=== PATIENT | female | born 1965 | race Caucasian/White ===

== ENCOUNTER 2020-11-01 12:17 | Observation (INO) | payer OTHER ==
[~2020-11-01] VITALS: Ht 172.7 cm; Wt 94.1 kg
--- NOTE | ~2020-11-01 | EMS ---
[place] [id number] EMS Patient Care Report Name: DANIELLE MENDOZA Room: [address]#: [id number] Admission: 11/01/20 Attend Phys: Naga Garcia MD Discharge: Date of : 67 Report #: [id number] THIS REPORT FOR: //name// Report Transmitted: 11/01/2020 14:49 EMS Care Summary [facility] Incident [phone] @ 11/01/2020 11:38 Incident Location [address] [place] [address] Patient DANIELLE MENDOZA Female, 54 Years 1965 Patient Address [address] [place] [address] Patient History Hyperlipidemia,Chronic Pain, Patient Allergies No known allergies, Patient Medications Simvastatin, Hydrocodone, Chief Complaint Radiating Chest Pain Disposition Transported No Lights/[place] Dispatch Reason Chest Pain (Non-Traumatic) Transported To [facility] Narrative Med 1 and Engine 2 as dispatched for a [age] year-old female c/o chest pain. Upon arrival, the patient was lying supine in her bed accompanied by family. The patient did not speak [place] well but a friend was there to help translate. The patient reported that she [place] [address] EMS Patient Care Report Name: DANIELLE MENDOZA Room: [address]#: [id number] Admission: 11/01/20 Attend Phys: Naga Garcia MD Discharge: Date of : 67 Report #: [id number] radiated down her left arm rated at a 10/10. Patient's vitals were obtained and patient was placed on the matchbook maker. 12 lead shown NSR with no ectopy. The patient was assisted to the stretcher and secured via the seatbelts and moved to the ambulance without incident. In the ambulance, patient was placed on Oxygen via NC at 2 lpm, IV access was established in the patient's right AC with a 20 GA IV catheter. Patient's blood glucose was 101 mg/dL. Patient was given 324 mg of ASA and 100 mcg of Fentanyl. Patient's pain decreased to a 3. Patient was monitored throughout transport. Hospital report was given via radio with no questions or orders received or requested. Med 1 arrived at the hospital. Patient was moved into the ER room 15 without incident. Patient care was transferred to ER staff and MEd 1 returned back into service. Initial Vitals @11:47P: 82,R: 18,Pain: 10/10,GCS: 15,SpO2: 98, @11:55P: 91,R: 20,BP: 170/104,GCS: 15,SpO2: 99,Revised Trauma: 12, @11:43P: 84,R: 18,BP: 154/94,Pain: 10/10,GCS: 15,Temp: 97.9F,Glucose: 101,SpO2: 98,Revised Trauma: 12, @12:07P: 94,R: 18,BP: 172/98,Pain: 10/10,GCS: 15,SpO2: 99,Revised Trauma: 12, Assessments @11:45MENTAL:Person Oriented,Time Oriented,Place Oriented,Event Oriented,SKIN:HEENT:Head/Face: No Abnormalities,LUNG SOUNDS:ABDOMEN:PELVIS//GI:EXTREMITIES:Left Arm: Other,Right Arm: No Abnormalities,Left Leg: No Abnormalities,Right Leg: No Abnormalities,PULSE:NEURO:No Abnormalities, Impression Chest Pain / Discomfort Procedures @12:05Fentanyl - 100 Micrograms (mcg) - Intravenous (IV)Response: Improved@11:52Saline Lock 10cc (20 ga) Site: Antecubital-RightResponse: UnchangedSucceeded@12:02Aspirin - 324 Milligrams (mg) - OralResponse: Unchanged Timeline 11:38,Call Received 11:38,Dispatched 11:38,En Route 11:41,On Scene 11:42,At Patient 11:43,BP: 154/94 M,PULSE: 84,RR: 18 R,SPO2: 98 Ox,ETCO2: ,B,PAIN: 10,GCS: 15, [place] [address] EMS Patient Care Report Name: DANIELLE MENDOZA Room: [address] M.R.#: [id number] Admission: 11/01/20 Attend Phys: Naga Garcia MD Discharge: Date of : 67 Report #: [id number] 11:47,BP: / M,PULSE: 82,RR: 18 R,SPO2: 98 Ox,ETCO2: ,BG: ,PAIN: 10,GCS: 15, 11:52,Saline Lock 10cc 20 ga Site: Antecubital-Right,Response: UnchangedSucceeded, 11:55,BP: 170/104 M,PULSE: 91,RR: 20 R,SPO2: 99 Ox,ETCO2: ,BG: ,PAIN: ,GCS: 15, 11:56,Depart Scene 12:02,Aspirin - 324 Milligrams (mg) - Oral,Response: Unchanged 12:05,Fentanyl - 100 Micrograms (mcg) - Intravenous (IV),Response: Improved 12:07,BP: 172/98 M,PULSE: 94,RR: 18 R,SPO2: 99 Ox,ETCO2: ,BG: ,PAIN: 10,GCS: 15, 12:14,At Destination 12:45,Call Closed 12:45,In District Disclaimer v1.1 Copyright 2020 [employer] This EMS Care Summary contains data elements from the applicable legal record (which may be displayed differently). It is designed to provide pertinent information for the following purposes: continuity of care, clinical quality, and state data reporting. The complete legal record is available to ED staff and administrators of the receiving hospital in ES's Patient Tracker. All data is provided "as is."
--- NOTE | ~2020-11-01 | H ---
[address] [address] HISTORY AND PHYSICAL Name: DANIELLE MENDOZA Room: [address] Suzy Lacey#: [id number] Admission: 11/01/20 Attend Phys: Naga Garcia MD Discharge: 11/01/20 Date of : 67 Report #: [id number] THIS REPORT FOR: cc: Cory Espino Ahmad W. DO [facility],Medical Records Staff ~ For History and Physical please refer to the consultation note in the patient's medical record. By: 1452Medical Records Staff TEJINDER /NAT
[2020-11-01 12:21] VITALS: BP 153/83
--- NOTE | 2020-11-01 12:31 | NUR ---
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
[2020-11-01 12:41] LABS: ABSOLUTE BASOPHILS 0.1 thou/uL (0.0-0.2); ABSOLUTE EOSINOPHILS 0.1 thou/uL (0.0-0.7); ABSOLUTE LYMPHOCYTES 3.8 thou/uL (0.8-5.3); ABSOLUTE MONOCYTES 0.8 thou/uL (0.0-1.2); ABSOLUTE NEUTROPHILS 4.8 thou/uL (1.6-8.1); BASOPHILS 0.6 %; HEMATOCRIT 41.1 % (37.0-47.0); HEMOGLOBIN 13.6 gm/dL (12.0-15.0); MCH 30.4 pg (26.0-34.0); MCHC 33.2 g/dL (28.0-37.0); MCV 91.4 fL (80.0-100.0); MONOCYTES 8.2 %; MPV 7.8 fl. (7.2-11.1); NUCLEATED RBCS 0 /100WBC; PLATELET COUNT* 303 thou/uL (150-400); POLYS 50.2 %; RDW-CV 13.3 % (10.5-14.5); WBC 9.5 thou/uL (4.0-11.0)
[2020-11-01 12:51] LABS: CALCIUM 9.6 mg/dL (8.5-10.1); CREATININE 0.8 mg/dL (0.6-1.3)
[2020-11-01 13:02] LABS: ALBUMIN 4.3 g/dL (3.4-5.0); TOTAL BILIRUBIN 0.4 mg/dL (<0.1-1.0); TOTAL PROTEIN 8.4 g/dL (6.4-8.2)
--- NOTE | 2020-11-01 14:39 | NUR ---
PT TANNER KOWALSKI, REQUEST TO BE UPDATED AT [phone]
[2020-11-01] MEDS ORDERED: NITROSTAT0.4 M1 SUBLING (15:44)
[2020-11-01] MEDS ORDERED: ASA81BEC PO (15:44)
--- NOTE | 2020-11-01 17:22 | EXE ---
[place] [address] STRESS ECHOCARDIOGRAM Name: REJIDANIELLE Room: [address] M.R.#: [id number] Admission: 11/01/20 Attend Phys: Naga Garcia, Discharge: Date of : 67 Date of Service: 11/01/20 1721 Report #: [id number] THIS REPORT FOR: cc: Cory Espino Ahmad W. DO Holkins,Greg Fuentes MD [facility] ~ APPROVED REPORT Study performed: 11/01/2020 16:31:32 Exam: Dobutamine Stress Echo Indication: Chest pain , Dyspnea Patient Location: ER Stress Nurse: Tatiana Lane RN Supervising Physician: Sabino Cullen MD Status: routine Ht: 5 ft 8 in HR: 78 bpm BP: 129/87 mmHg Rhythm: NSR Medical History Cardiac Risk Factors: Hyperlipidemia, FHX of CAD Procedure The patient underwent an Exercise Stress Test using the Ye Protocol. Blood pressure, heart rate, and EKG were monitored. An Echocardiogram was performed by cable installation technician in four stages in quad fashion. At peak stress, four selected images were obtained and placed side by side with resting images for comparison. Stress Test Details Stress Test: Pharmacological Stress Test using Dobutamine. Reason for pharmacologic stress test: physical limitation. HR Resting HR: 78 bpm Max Heart Rate (APMHR): 167 bpm Max HR Achieved: 158 bpm Target HR (85% APMHR): 141 bpm % of APMHR: 94 Recovery HR: 91 bpm HR response to stress: Normal HR response to stress BP Resting BP: 129/87 [place] [address] STRESS ECHOCARDIOGRAM Name: DANIELLE MENDOZA Room: [address]#: [id number] Admission: 11/01/20 Attend Phys: Ngaa Garcia, Discharge: Date of : 67 Date of Service: 11/01/20 1721 Report #: [id number] Max BP: 143/83 mmHg Recovery BP: 142/87 mmHg BP response to stress: Normal blood pressure response to stress. ECG Resting ECG: Sinus rhythm normal EKG Stress ECG: No ischemic ST-T changes Arrhythmia: No arrhythmia Recovery ECG: No ischemic ST-T changes Recovery Arrhythmia: No arrhythmia Clinical Reason for Termination: Completed protocol Stress Symptoms: Chest pain Exercise capacity: 8.5 METs Pre-Stress Echo The resting Echocardiogram showed normal left ventricular contractility with an estimated Ejection Fraction of about 55-60%. Normal wall motion in all segments on baseline images. Post-Stress Echo The stress Echocardiogram showed normal left ventricular contractility with an estimated Ejection Fraction of about >70%. Normal augmentation of wall motion in all segments on post stress images. Conclusion Clinical Response: Indeterminant Stress ECG Response: Non-ischemic Stress Echo Images: Non-ischemic Other Information Study Quality: Good <ELECTRONICALLY SIGNED> By: Greg Velasquez MD, FACC 11/01/201720 20 20 Greg Velasquez MD, FACC /INF
--- NOTE | 2020-11-01 17:30 | NUR ---
DR. CALIXTO WITH CARDIOLOGY REPORTS NEGATIVE STRESS TEST.
[2020-11-01 19:56] VITALS: BP 140/80
--- NOTE | 2020-11-01 20:33 | NUR ---
PT ARRIVED ON UNIT AT APPROX 1999. RN RECEIVED PT ON UNIT AND ASKED ABOUT D/C ORDERS IN THE SYSTEM. NOTHING WAS KNOWN ABOUT D/C ORDERS. AFTER VERIFYING WITH VAIBHAV CERVANTESE AND CHARGE NURSE, D/C CHARGE WAS DONE BY FRUIT GRADER OPERATOR.
[2020-11-01 21:10] VITALS: BP 140/80
--- NOTE | 2020-11-02 12:11 | EKG ---
[place] [address] ELECTROCARDIOGRAM REPORT Name: DANIELLE MENDOAZ Room: [address]#: [id number] Admission: 11/01/20 Attend Phys: Naga Garcia, Discharge: 11/01/20 Date of : 67 Date of Service: 11/01/20 1224 Report #: [id number] THIS REPORT FOR: //name// [facility] ED Test Date: 2020-11-01 Test Time: 12:24:32 Pat Name: DANIELLE MENDOZA Department: Room: [facility] Gender: F Clinic Supervisor: VINCENZO : 1965 Requested By: Erica Collazo Order Number: [id number] MD: Greg Velasquez Measurements Intervals [place] Rate: 83 P: 19 SD: 131 QRS: 8 QRSD: 94 T: 21 QT: 370 QTc: 435 Interpretive Statements Sinus rhythm No previous ECG available for comparison Electronically Signed On 11-02-2020 12:11:40 CDT by Greg Velasquez [email or web address] <ELECTRONICALLY SIGNED> By: Greg Velasquez MD, [facility] 11/02/20 1211 1224 1224 Greg Velasquez MD, [facility] /EPI
== END 2020-11-01 21:14 | disposition home or self-care (01) ==
LOC: M.ERS 12:17 → M.TBA-ER 15:46 → M.2W 20:00
PROVIDERS: Nurse Practitioner Family; ADMIT Internal Medicine; ATTEND Internal Medicine
DX: R07.89 Other chest pain (principal); Z20.822 Contact with and (suspected) exposure to COVID-19; I10 Essential (primary) hypertension; E66.9 Obesity, unspecified; Z68.31 Body mass index [BMI] 31.0-31.9, adult; Z79.82 Long term (current) use of aspirin; Z79.899 Other long term (current) drug therapy